=== PATIENT | female | born 1975 | race Caucasian/White ===

== ENCOUNTER 2020-06-27 06:09 | Day surgery (SDC) | payer OTHER ==
[~2020-06-27] VITALS: Ht 160 cm; Wt 56.0 kg
[~2020-06-27 06:09] MED LIST: ALPR.5 PO; Bactrim Ds Tab1 EACH PO; CEPH500 PO; CLIN300 PO; DEPO-PROVE150 MG/1 M; HYDACE5 PO; Zofran8 MG PO
[2020-06-27] MEDS ORDERED: HYDHCL25 PO (06:50)
[2020-06-27] MEDS ORDERED: CYCL10 PO (06:51)
[2020-06-27] MEDS ORDERED: ESTARYLLA 0.251 EACH PO (06:51)
--- NOTE | 2020-06-27 09:22 | NUR ---
06/27/20 0922 Tabitha Flanagan EPI 0.25CC ADDED TO 50CC OF INJ NACL FOR INJECTION AT THE BEG.OF CASE BY SURGEON (1:200,000) FOR HEMOSTASIS
--- NOTE | 2020-06-27 10:41 | NUR ---
06/27/20 1041 Michelle Davidson RECIEVED FROM PACU NAUSEATED WITH CLEAR VOMIT X 3. ZOFRAN GIVEN IV FOR NAUSEA. CONT. TO CO NAUSEA/VOMIT. PHENERGAN 12.5MG GIVEN IV FOR N/V. EMESIS IS SMALL AMOUNT CLEAR. DENIES PAIN OR SOB. ICED AND ELEVATED RIGHT SHOULDER. AMB. TO [facility] FOR 300CC [place] URINE
== END 2020-06-27 11:36 | disposition home or self-care (01) ==
LOC: ORSCSDS 06:09
PROVIDERS: Orthopaedic Surgery
PROC: 0RBJ4ZZ Excision of Right Shoulder Joint, Percutaneous Endoscopic Approach (ICD-10-PCS; principal; 2020-06-27 07:30)
PROC: 0LQ10ZZ Repair Right Shoulder Tendon, Open Approach (ICD-10-PCS; principal; 2020-06-27 07:30)
DX: S42.251A Displaced fracture of greater tuberosity of right humerus, initial encounter for closed fracture (principal); S46.001A Unspecified injury of muscle(s) and tendon(s) of the rotator cuff of right shoulder, initial encounter; F41.8 Other specified anxiety disorders; Z79.899 Other long term (current) drug therapy
CPT/HCPCS: C1713; J0171; J0690; J1100; J2001; J2250; J2370; J2405; J2550; J2704; J3010; J7120